=== PATIENT | female | born 1995 | race Caucasian/White ===

== ENCOUNTER → 2019-08-30 14:09 | Outpatient (CLI) | payer OTHER, SELFPAY | PROVIDERS: Visit Provider Nurse Practitioner | DX: N30.01 Acute cystitis with hematuria (principal) | CPT/HCPCS: 87077; 87086 ==

== ENCOUNTER → 2022-05-01 09:17 | Outpatient (CLI) | payer OTHER, SELFPAY ==
--- NOTE | 2022-05-01 09:22 | DI.RAD.S_ITS ---
PROCEDURE: FL JOINT INJECTION LARGE LT INDICATIONS: FEMORAL ACETABULAR IMPINGEMENT COMPARISON: None. TECHNIQUE: The indications, alternatives, benefits, risks, and complications of the procedure were explained to the patient. Written informed consent was obtained and placed in the chart. The patient was placed in an appropriate position on the fluoroscopy table, and a site was chosen for percutaneous access under fluoroscopic guidance. The site was prepped and draped in a sterile fashion. Local anesthetic was administered using a 1% lidocaine solution. A hypodermic or spinal needle was then used to access the symptomatic joint. Intra-articular location of the needle tip was confirmed by injecting a small amount of contrast, followed by steroid administration. The needle was then withdrawn, and a bandage applied to the puncture site. FINDINGS: Joint injected: Left hip Medications injected: 4mL of 40 mg/mL Kenalog and 0.5% Ropivacaine mixture. Patient's pain before injection: 3 out of 10. Patient's pain after injection: 1 out of 10. Complications: None. IMPRESSION: Successful fluoroscopically guided administration of steroid and anaesthetic solution into the left femoroacetabular joint. Dictated by: Dannie Weller M.D. on 05/01/2022 at 10:13 Approved by: Dannie Weller M.D. on 05/01/2022 at 10:14
== END ==
PROVIDERS: PCP Physician Assistant; Referring Provider Counselor Mental Health; Visit Provider Counselor Mental Health
DX: M25.852 Other specified joint disorders, left hip (principal)
CPT/HCPCS: 20610

== ENCOUNTER 2022-08-06 08:55 | Day surgery (SDC) | payer OTHER, SELFPAY ==
[2022-08-06] VITALS (7 sets, daily range): BP systolic 93–126; BP diastolic 43–81; PULSE 71–97; RESP 16–21; TEMP 36.7–37.2; O2SAT 95–100; BMI 24.1
--- NOTE | 2022-08-06 | PATH_ITS ---
[facility] Accession Number: [id number] . 01 Material submitted: . PART A: gastrointestinal site - GASTRIC PART B: esophagus - ESOPHAGEAL AT 38 . 01 Clinical history: . A: R/O H. PYLORI . 01 Diagnosis: A. Stomach, Biopsy: Antral mucosa with mild chronic gastritis. Negative for Helicobacter by immunohistochemistry. Negative for intestinal metaplasia. Negative for dysplasia and malignancy. . B. Esophagus, 38, Biopsy: Squamous and columnar mucosa with no diagnostic abnormality. Negative for intestinal metaplasia. Negative for dysplasia and malignancy. MRV 08/11/2022 1306 Local . 01 Electronically signed: . Isabel Galvin MD, Pathologist NPI- [id number] . 01 Gross description: . Part A: GASTRIC: Received in formalin are 3 fragment(s) of jc, soft tissue measuring 0.1 x 0.1 x 0.1 cm to 0.3 x 0.2 x 0.1 cm submitted entirely in 1 cassette(s) Part B: ESOPHAGEAL AT 38: Received in formalin are 4 fragment(s) of jc, soft tissue measuring 0.1 x 0.1 x 0.1 cm to 0.3 x 0.3 x 0.2 cm submitted entirely in 1 cassette(s) /MARKY 08/07/2022 1836 Local . 01 Microscopic: . A. An immunohistochemical stain was performed to evaluate for Helicobacter organisms and is negative. The control stain showed appropriate reactivity. . * This test was developed and its performance characteristics determined by [facility]. It has not been cleared or approved by the U.S. Food and Drug Administration. The FDA has determined that such clearance or approval is not necessary. This test is used for clinical purposes. It should not be regarded as investigational or for research. . 01 Pathologist provided ICD-10: K21.9 . 01 CPT . 899241, 146361, M11503 Specimen Comment: A courtesy copy of this report has been sent to [facility]ology Performed at: 01 [facility] [address] [place] [address], [place], [place] [id number] MD Jules Guerrero MD Phone: [phone]
[2022-08-06] MEDS: LACTATED RINGERS 1,000 ML 42 ML IV (09:40)
--- NOTE | 2022-08-06 09:41 | PM.HP.1 ---
History of Present Illness History of Present Illness Date Patient Seen: 08/06/22 Time Patient Seen: 09:41 Chief complaint: SDC Narrative: Patient is a very pleasant 27-year-old female who presented for upper endoscopy. She has continued to have persistent symptoms of gastroesophageal reflux since her last office visit. She states her bowels have become more consistent. Patient History Family & Social History Social History: household members family Tobacco & Substance use: Smoking Status Never smoker alcohol intake never Meds Home Medications and Allergies Home Medications Medication Instructions Recorded Confirmed Type oral contraceptive PO 08/30/19 08/30/19 History Allergies Allergy/AdvReac Type Severity Reaction Status Date / Time cefaclor [From Ceclor] Allergy Mild rash Verified 08/30/19 14:25 erythromycin base Allergy Mild rash Verified 08/30/19 14:25 Review of Systems Review of Systems ROS: Yes All systems reviewed with the patient and are negative except as otherwise documented Exam Vital Signs (past 8 hours): - 08/06/22 09:20 Temperature 98.5 F Pulse Rate 97 H Respiratory Rate 16 Blood Pressure 126/81 Pulse Oximetry 100 Oxygen Delivery Method Room Air Oxygen Delivery Method Room Air Const General: cooperative, healthy appearing, comfortable and No acute distress HENMT Head: normocephalic and atraumatic Resp Effort & Inspection: normal respiratory effort, able to speak in complete sentences and no audible wheezes Auscultation: clear to auscultation bilaterally Cardio Rate: regular rate Rhythm: regular rhythm GI Palpation: soft Assessment & Plan Assessment & Plan narrative: 1. Persistent symptoms of gastroesophageal reflux despite medical therapy EGD today, further recommendations to follow Time Spent With Patient Critical Care time: I spent a total of [] minutes of critical care time on this patient's care today; this time is exclusive of procedural time.
--- NOTE | 2022-08-06 10:16 | PM.OP.EGD ---
Operative Date/Time/Diagnoses Date of procedure: 08/06/22 Time of procedure: 10:03 Procedure Notes Procedure in detail: Surgeon: Fiona Jiang DO Procedure: Esophagogastroduodenoscopy with biopsy Preoperative diagnosis: 1. Persistent symptoms of gastroesophageal reflux despite therapy Postoperative diagnosis: 1. LA-a esophagitis at 38 cm, biopsied 2. Mild gastritis, biopsied 3. Normal-appearing duodenum Medications: Monitored anesthesia care Preanesthesia Assessment An H and P was performed/updated and the Px?s ASA class is 1. The procedure was discussed in detail with the patient. The potential risks and complications including infection, bleeding, missed lesions, perforation, need for surgery in case of perforation, prolonged hospital stay, and were explained. A brief question and answer period was allotted and once all questions were answered, informed consent was obtained. The patient was brought back to the procedure room and placed on standard monitoring. The patient?s vital signs were monitored continuously throughout the entire procedure. Prior to starting, a timeout was performed to confirm the patient?s identity, allergies, medications, and procedure. Procedure in detail The patient was placed in left lateral decubitus position and a bite block was inserted. The tip of the upper endoscope was placed into the mouth and advanced without difficulty under direct visualization into the esophagus. Esophagus: LA-a esophagitis at 38 cm, biopsied to rule out Chaudhary's esophagus Stomach: Mild gastritis in the antrum body, biopsied to rule out H pylori Normal appearing stomach on retroflexion Duodenum: Normal-appearing duodenum The patient tolerated the procedure well and will be brought back to the recovery area to be discharged once criteria are met. Complications There were no complications and estimated blood loss was minimal. Recommendations: Resume previous diet Continue outPx medications Follow up pathology results Office follow up to be scheduled An emergency contact number was given to the patient for any complications related to the procedure
--- NOTE | 2022-08-06 10:58 | SUR.PHASEII ---
Patient reported mild nausea as she was leaving but that it was not bad.
== END 2022-08-06 10:58 | disposition home or self-care (01) ==
PROVIDERS: PCP Physician Assistant; Referring Provider Student in an Organized Health Care Education/Training Program; Visit Provider Student in an Organized Health Care Education/Training Program
PROC: 0DJ08ZZ Inspection of Upper Intestinal Tract, Via Natural or Artificial Opening Endoscopic (ICD-10-PCS; CPT 43235; principal; 2022-08-06 10:00)
DX: K21.00 Gastro-esophageal reflux disease with esophagitis, without bleeding (principal); K29.50 Unspecified chronic gastritis without bleeding
CPT/HCPCS: 43239; J2250; J2704; J3010